=== PATIENT | male | born 1995 ===

== ENCOUNTER 2025-05-19 14:02 | Outpatient (AMB) | payer BC, SELFPAY ==
[2025-05-19 14:38] VITALS: BP 132/86; PULSE 66; RESP 18; TEMP 36.6; O2SAT 98; BMI 24.5
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
== END 2025-05-19 15:35 | disposition home or self-care (01) ==
LOC: HODAHC 14:02
PROVIDERS: Referring Provider Internal Medicine; Supervising Provider Internal Medicine
DX: L50.0 Allergic urticaria (principal); M51.360 Other intervertebral disc degeneration, lumbar region with discogenic back pain only
CPT/HCPCS: 99203; G0463